=== PATIENT | male | born 1950 | race Caucasian/White ===

== ENCOUNTER → 2016-11-10 | Outpatient (CLI) | payer OTHER, MEDICARE ==
[~2016-11-10] MED LIST: CPRDOTS OPR; GLC/500 PO; KETO10TA OPR; OMEG10007 PO; PRED1SUS3 OPR
--- NOTE | 2016-11-10 15:53 | DIAGNOSTIC IMAGING REPORT ---
CHEST 2 VIEWS ROUTINE CLINICAL HISTORY: COUGH, RALES dyspnea COMPARISON STUDY: No previous studies for comparison. FINDINGS: The bones soft tissues and hemidiaphragms are normal. The cardiomediastinal silhouette is normal. The lungs are clear. The pulmonary vasculature is normal. IMPRESSION: Negative chest. Electronically signed by: Darrell Hou M.D. 11/10/2016 3:51 PM Dictated Date/Time: 11/10/2016 3:51 PM
== END | disposition home or self-care (01) ==
LOC: C.RAD1850 15:34
PROVIDERS: ATTEND Family Medicine
DX: R05 Cough (principal); R09.89 Other specified symptoms and signs involving the circulatory and respiratory systems

== ENCOUNTER → 2016-12-01 | Day surgery (SDC) | payer OTHER, MEDICARE ==
[2016-11-17 11:51] VITALS: Ht 190.5 cm; Wt 113.6 kg
[~2016-12-01] VITALS: Ht 190.5 cm; Wt 113.6 kg
[~2016-12-01] MED LIST changes: +500ML BSS 0.3ML EPI 1:1000PF IRRIG ONE; +ACETAMINOPHEN 325 MG TAB PO PRN; +AMVISC PLUS 0.8ML SYRINGE INT OCU ONE; +ATROPINE SULFATE 0.1 MG/ML 5ML SYR IV PRN; +BRIMONIDINE TART 0.2% OP SOLN PER DROP CHARGE ONE; +BSS FLUSH ONE; +ENDOCOAT 0.85ML SYRINGE INT OCU ONE; +EpHEDrine SULFATE INJ 50 MG/ML AMP IV PRN; +EpINEphrine INJ 1MG/ML AMP 1 MG/ML AMP ONE; +LACTATED RINGER'S 1000ML 500 ML IV SCH; +LIDOCAINE 4% OP SOLN DROP CHARGE ONE; +LIDOCAINE 4% OP SOLN DROP CHARGE OPR SCH; +LIDOCAINE HCL 1% MPF 2 ML VIAL ONE; +MIDAZOLAM HCL 1 MG/ML 2ML VIAL ONE; +MOXIFLOXACIN OPH SOLN PER DROP CHARGE ONE; +POVIDONE-IODINE OP SOLN 30 ML BTL ONE; +PROPARACAINE 0.5% OP SOLN PER DROP CHARGE OPR SCH; +PROPARACAINE HCL 0.5% OP SOLN 15 ML BTL OPR ONE; +TOBRAMYCIN/DEXAMETHASONE OPH OINT PER APPLN CHARGE ONE
[2016-12-01] MEDS: PHENYLEPHRINE HCL 2.5% OP SOLN PER DROP CHARGE OPR SCH ×2 (08:33→08:38)
[2016-12-01] MEDS: TROPICAMIDE 1% OP SOLN PER DROP CHARGE OPR SCH ×2 (08:34→08:39)
[2016-12-01] MEDS: CYCLOPENTOLATE HCL 1% OP SOLN PER DROP CHARGE OPR SCH ×2 (08:35→08:40)
[2016-12-01] MEDS: KETOROLAC 0.5% OP SOLN PER DROP CHARGE OPR SCH ×2 (08:36→08:41)
[2016-12-01] MEDS: MOXIFLOXACIN OPH SOLN PER DROP CHARGE OPR SCH ×2 (08:38→08:47)
--- NOTE | 2016-12-01 09:08 | History & Physical Bridge - [place] ---
H&P Re-Evaluation Bridge Note: I have examined the patient, reviewed the History & Physical and in the interval since the performance of the History & Physical I have noted the following changes of clinical significance: No changes noted
[2016-12-01 10:11] VITALS: TEMP 36.8
--- NOTE | 2016-12-01 10:12 | [facility] Post Operative Brief Note ---
Immediate Operative Summary Operative Date Dec 01, 2016. Pre-Operative Diagnosis Cataract right eye Post-Operative Diagnosis same Procedure(s) Performed Right Cataract Phacoemulsification With Intraocular Lens Implant; Toric Lens Surgeon Dr George Press Tender [employer]s Surgeon(s) 0 Estimated Blood Loss 0 Findings cataract right eye Specimens 0 Complication(s) None Disposition Recovery Room / PACU
--- NOTE | 2016-12-01 10:12 | Discharge Instructions-SurgCtr ---
Discharge Instructions Date of Service Dec 01, 2016. Visit Reason for Visit: Cataract Right Eye Discharge Discharge Diagnosis / Problem: cataract right eye Discharge Goals Goal(s): Improve function Activity Recommendations Activity Limitations: per Instructions/Follow-up section Lifting Limitations: no more than 5 pounds Anesthesia . Post Anesthesia Instructions: If you have had General Anesthesia or IV Sedation: * Do not drive today. * Resume driving when surgeon permits. * Do not make important decisions or sign legal documents today. * Call surgeon for: 1. Temperature elevations greater than 101 degrees F. 2. Uncontrollable pain. 3. Excessive bleeding. 4. Persistent nausea and vomiting. 5. Medication intolerance (nausea, vomiting or rash). * For nausea and vomiting use only clear liquids such as: tea, soda, bouillon until nausea subsides, then gradually increase diet as tolerated. * If you have any concerns or questions, call your surgeon's office. If physician is unavailable and it is an emergency, call 911 or go to the nearest emergency room. . Instructions / Follow-Up Instructions / Follow-Up ACTIVITY RECOMMENDATIONS: * Light activities * You may walk outside, read, watch television. * Mild irritation and blurred vision are common for the first few days, redness around the white part of the eye is common. MEDICATIONS: Resume previous medications unless instructed otherwise by your surgeon. Eye drops (today and tomorrow): Cipro - one drop in operative eye every 2 hours while awake Prednisolone 1% - one drop in operative eye every 2 hours while awake Ketorolac - one drop in operative eye every 2 hours while awake SPECIAL CARE INSTRUCTIONS: * If any problems or concerns, please call Dr. George's office at . * Keep plastic shield taped over eye to sleep at night. * Keep plastic shield taped over eye except to administer eye drops. * Keep plastic shield on until office visit the following day. FOLLOW UP VISIT: Follow-up with Dr. George in the [place] office as scheduled. If not already scheduled, please call the office at . Diet Recommendations Home Diet: resume previous diet Procedures Procedures Performed: Right Cataract Phacoemulsification With Intraocular Lens Implant; Toric Lens Pending Studies Studies pending at discharge: no Medical Emergencies . Who to Call and When: Medical Emergencies: If at any time you feel your situation is an emergency, please call 911 immediately. . Non-Emergent Contact Non-Emergency issues call your: [employer] . . "Provider Documentation" section prepared by Charlie George.
--- NOTE | 2016-12-01 10:16 | Anesthesia Progress Nt - [facility] ---
Anesthesia Post Op Note Date & Time Dec 01, 2016 at 10:16 Vital Signs Pain Intensity: 0 Vital Signs Past 12 Hours Date Time Temp Pulse Resp B/P Pulse Ox O2 Delivery O2 Flow Rate FiO2 12/01/16 09:45 62 16 136/84 95 Room Air 12/01/16 09:34 67 16 133/86 99 Room Air 12/01/16 08:20 36.5 62 16 150/83 96 Room Air Notes Mental Status: alert / awake / arousable, participated in evaluation Pt Amnestic to Procedure: Yes Nausea / Vomiting: adequately controlled Pain: adequately controlled Airway Patency, RR, SpO2: stable & adequate BP & HR: stable & adequate Hydration State: stable & adequate Anesthetic Complications: no major complications apparent
--- NOTE | 2016-12-01 10:28 | OPERATIVE REPORT ---
DATE OF OPERATION: 12/01/2016 PREOPERATIVE DIAGNOSES: Cataract and astigmatism, right eye. POSTOPERATIVE DIAGNOSES: Same. PROCEDURE PERFORMED: Phacoemulsification cataract extraction with toric intraocular lens placement with the use of femtosecond laser, right eye. COMPLICATIONS: None. ESTIMATED BLOOD LOSS: None. ANESTHESIA: Local with sedation. DESCRIPTION OF PROCEDURE: After informed consent was obtained, the patient was first taken to the femtosecond laser room where the patient's right eye was docked with the laser. The primary incision was made at the 9 o'clock position of the patient's right eye as was the capsulorrhexis and prechop of the lens by the laser. The patient was then undocked from the laser and taken to the operating room where cardiac monitoring leads and oxygen by nasal cannula was administered by anesthesia. Gentle IV sedation was given, and the patient's right eye was prepped and draped in usual sterile fashion. A wire lid speculum was placed in the right eye and the operating microscope swung into position. Using 0.12 forceps and a supersharp blade, a paracentesis port was made at the 11 o'clock position of the patient's right eye. 1% nonpreserved lidocaine was injected into the anterior chamber for anesthesia. EndoCoat was then injected into the anterior chamber. A Yordy spatula was then used to enter the femtosecond laser primary incision at the 9 o'clock position of the patient's right eye. Amvisc was then injected underneath the EndoCoat on top of the lens capsule and the free floating lens capsule was removed with Utrata forceps. BSS on a hydrodissection cannula was then used to hydrodissect the lens nucleus away from the capsular bag. The phacoemulsification handpiece was then used in a stop and chop fashion to remove the lens nucleus. Irrigation-aspiration handpiece was then used to remove the residual cortical material. The eye was then filled with Amvisc and an ANDRES [id number] 17.5 Diopter intraocular lens was injected into the eye. The primary incision was then hydrated and the irrigation-aspiration handpiece was used to remove the viscoelastic material from the eye. At the conclusion of viscoelastic material removal, the toric lens was aligned along the 21-degree axis of the patient's right eye. The incisions were noted to be watertight. The wire lid speculum was removed from the eye. Vigamox, brimonidine and TobraDex ointment were placed on the eye and the eye was shielded. The patient tolerated the procedure well and was taken to recovery area in stable condition. I attest to the content of the Intraoperative Record and any orders documented therein. Any exceptions are noted below. MTDD
[2016-12-01 10:44] VITALS: BP 122/79; PULSE 62; O2SAT 96
== END | disposition home or self-care (01) ==
LOC: X.SURG 08:04
PROVIDERS: ATTEND Ophthalmology
DX: H26.9 Unspecified cataract (principal); H54.7 Unspecified visual loss; H52.201 Unspecified astigmatism, right eye; E11.9 Type 2 diabetes mellitus without complications; H11.009 Unspecified pterygium of unspecified eye; H43.819 Vitreous degeneration, unspecified eye; Z98.890 Other specified postprocedural states

== ENCOUNTER → 2017-05-22 | Outpatient (CLI) | payer OTHER, MEDICARE ==
[~2017-05-22] MED LIST changes: -500ML BSS 0.3ML EPI 1:1000PF IRRIG ONE; -ACETAMINOPHEN 325 MG TAB PO PRN; -AMVISC PLUS 0.8ML SYRINGE INT OCU ONE; -ATROPINE SULFATE 0.1 MG/ML 5ML SYR IV PRN; -BRIMONIDINE TART 0.2% OP SOLN PER DROP CHARGE ONE; -BSS FLUSH ONE; -ENDOCOAT 0.85ML SYRINGE INT OCU ONE; -EpHEDrine SULFATE INJ 50 MG/ML AMP IV PRN; -EpINEphrine INJ 1MG/ML AMP 1 MG/ML AMP ONE; -LACTATED RINGER'S 1000ML 500 ML IV SCH; -LIDOCAINE 4% OP SOLN DROP CHARGE ONE; -LIDOCAINE 4% OP SOLN DROP CHARGE OPR SCH; -LIDOCAINE HCL 1% MPF 2 ML VIAL ONE; -MIDAZOLAM HCL 1 MG/ML 2ML VIAL ONE; -MOXIFLOXACIN OPH SOLN PER DROP CHARGE ONE; -POVIDONE-IODINE OP SOLN 30 ML BTL ONE; -PROPARACAINE 0.5% OP SOLN PER DROP CHARGE OPR SCH; -PROPARACAINE HCL 0.5% OP SOLN 15 ML BTL OPR ONE; -TOBRAMYCIN/DEXAMETHASONE OPH OINT PER APPLN CHARGE ONE
--- NOTE | 2017-05-22 14:39 | DIAGNOSTIC IMAGING REPORT ---
CHEST 2 VIEWS ROUTINE CLINICAL HISTORY: 66 years-old Male presenting with COUGH. TECHNIQUE: PA and lateral views of the chest were obtained. COMPARISON: 11/10/2016. FINDINGS: Cardiomediastinal silhouette normal. Lungs and pleural spaces clear. Degenerative changes of the spine. Upper abdomen normal. IMPRESSION: 1. No acute cardiopulmonary disease. Electronically signed by: James French M.D. 05/22/2017 2:37 PM Dictated Date/Time: 05/22/2017 2:37 PM
== END | disposition home or self-care (01) ==
LOC: C.RAD1850 14:16
PROVIDERS: ATTEND Student in an Organized Health Care Education/Training Program
DX: R05 Cough (principal)